=== PATIENT | male | born 1940 | race Hispanic/Latino ===

== ENCOUNTER 2017-08-21 08:37 | Day surgery (SDC) | payer MEDICARE ==
[2017-08-14 10:59] VITALS: BMI 26.9
[2017-08-21] MEDS ORDERED: Propofol 10 mg/ml Inj (20 ML) ONE (10:01)
[2017-08-21] MEDS ORDERED: Sodium Chloride 0.9% 1,000 ML IV SCH (10:30)
[2017-08-21 11:57] VITALS: TEMP 98.1; O2SAT 97
[2017-08-21 11:59] VITALS: BP 156/54; PULSE 63; RESP 17
== END 2017-08-21 11:52 | disposition home or self-care (01) ==
LOC: ENDO 08:37
PROVIDERS: ATTEND Specialist
DX: K22.10 Ulcer of esophagus without bleeding (principal); E11.43 Type 2 diabetes mellitus with diabetic autonomic (poly)neuropathy; K31.84 Gastroparesis; T18.2XXA Foreign body in stomach, initial encounter; K21.0 Gastro-esophageal reflux disease with esophagitis; I10 Essential (primary) hypertension; D64.9 Anemia, unspecified; I25.10 Atherosclerotic heart disease of native coronary artery without angina pectoris
CPT/HCPCS: 43239; 82948; 88305; 88312; J2704; J7030; J7040

== ENCOUNTER 2018-05-21 08:22 | Day surgery (SDC) | payer MEDICARE ==
[2018-05-09 14:50] VITALS: BMI 30.1
[2018-05-21] MEDS ORDERED: Lidocaine 1% Inj (20ml) ONE (09:24)
[2018-05-21] MEDS ORDERED: Propofol 10 mg/ml Inj (20 ML) ONE (09:24)
[2018-05-21] MEDS ORDERED: Sodium Chloride 0.9% 1,000 ML IV SCH (10:00)
[2018-05-21 10:12] VITALS: RESP 16
[2018-05-21 11:27] VITALS: BP 141/70; PULSE 62; TEMP 98.4; O2SAT 96
== END 2018-05-21 11:18 | disposition home or self-care (01) ==
LOC: ENDO 08:22
PROVIDERS: ATTEND Specialist
DX: Z12.11 Encounter for screening for malignant neoplasm of colon (principal); D12.5 Benign neoplasm of sigmoid colon; K57.30 Diverticulosis of large intestine without perforation or abscess without bleeding; K63.89 Other specified diseases of intestine; K64.8 Other hemorrhoids; I25.10 Atherosclerotic heart disease of native coronary artery without angina pectoris; E11.9 Type 2 diabetes mellitus without complications; J45.909 Unspecified asthma, uncomplicated; Z85.46 Personal history of malignant neoplasm of prostate; Z98.42 Cataract extraction status, left eye; Z98.41 Cataract extraction status, right eye; Z98.52 Vasectomy status; E66.9 Obesity, unspecified; Z68.30 Body mass index [BMI] 30.0-30.9, adult
CPT/HCPCS: 45385; 88305; J2704; J7030